=== PATIENT | female | born 1930 | race Caucasian/White ===

== ENCOUNTER 2016-07-26 08:26 | Day surgery (SDCO) | payer MEDICARE, OTHER ==
[2016-07-26 08:18] LABS: BASOPHIL 0.3 % (0-2); EOSINOPHIL 1.8 % (0-7); HCT 40.2 % (37.0-47.0); MCHC 34.8 g/dL (32.0-36.0); MCV 89.1 fL (78.0-100.0); MPV 10.8 fL (6.0-9.5); NEUTROPHIL 68.9 % (41-80); PLT 145 K/uL (150-400); RBC 4.51 M/uL (4.20-5.40); RDW 12.4 % (11.5-14.0); WBC 6.6 K/uL (4.0-10.5)
[2016-07-26 08:23] LABS: INR 1.7 (0.9-1.2); PROTHROMBIN TIME 19.4 SECONDS (11.7-14.0); PTT 38.1 SECONDS (23.2-31.4)
[2016-07-26 08:26] LABS: CKMB 3.02 ng/mL (0.97-4.94); MYOGLOBIN 51 ng/mL (26-65); PRO-BNP 5616 pg/mL (0-450); TROPONIN T < 0.010 ng/mL
[2016-07-26 08:27] LABS: ALBUMIN 4.5 g/dL (3.4-4.8); BILIRUBIN - TOTAL 0.5 mg/dL (0.1-1.0); CREATININE 1.1 mg/dL (0.5-1.0); GLOBULIN (CALCULATION) 2.3 g/dL (2.2-4.2); POTASSIUM 3.4 mmol/L (3.5-5.1); TOTAL PROTEIN 6.8 g/dL (6.4-8.3)
[2016-07-27 04:22] LABS: HCT 39.4 % (37.0-47.0); HGB 13.8 g/dl (12.5-16.0); MCH 31.3 pg (25.0-31.0); MCV 89.3 fL (78.0-100.0); MPV 10.9 fL (6.0-9.5); RBC 4.41 M/uL (4.20-5.40); RDW 12.4 % (11.5-14.0); WBC 7.8 K/uL (4.0-10.5)
[2016-07-27 04:45] LABS: INR 1.98 (0.9-1.2); PROTHROMBIN TIME 21.9 SECONDS (11.7-14.0)
[2016-07-27 06:22] LABS: CREATININE 1.5 mg/dL (0.5-1.0); POTASSIUM 3.6 mmol/L (3.5-5.1)
[2016-07-27] MEDS ORDERED: COUMADIN4 MG PO (10:39)
[2016-07-27] MEDS ORDERED: ASPIRIN CHEWABL81 MG PO (10:42)
[2016-07-27] MEDS ORDERED: ZESTRIL5 MG PO (10:42)
[2016-07-27] MEDS ORDERED: LOPRESSOR100 MG PO (10:43)
[2016-07-27] MEDS ORDERED: ZOCOR20 MG PO (10:43)
[2016-07-27] MEDS ORDERED: POTASSIUM CHLO10 MEQ PO (10:44)
[2016-07-27] MEDS ORDERED: BUMETANIDE2 MG PO (10:44)
== END 2016-07-27 14:35 | disposition home or self-care (01) ==
LOC: FER 08:26 → FTCU 11:55
PROVIDERS: Internal Medicine; ADMIT Internal Medicine
DX: I48.0 Paroxysmal atrial fibrillation (principal); I25.10 Atherosclerotic heart disease of native coronary artery without angina pectoris; I11.0 Hypertensive heart disease with heart failure; I50.30 Unspecified diastolic (congestive) heart failure; E78.5 Hyperlipidemia, unspecified; Z90.49 Acquired absence of other specified parts of digestive tract; Z95.2 Presence of prosthetic heart valve; Z90.710 Acquired absence of both cervix and uterus; Z82.49 Family history of ischemic heart disease and other diseases of the circulatory system; Z79.01 Long term (current) use of anticoagulants; Z79.899 Other long term (current) drug therapy
CPT/HCPCS: 36415; 71010; 80048; 80053; 82550; 82553; 83735; 83874; 83880; 84443; 84484; 85025; 85610; 85730; 93005; C9113; G0378

== ENCOUNTER 2021-01-22 10:32 | Emergency (ER) | payer MEDICARE, OTHER ==
[~2021-01-22 10:32] MED LIST: ASPIRIN CHEWABL81 MG PO; BUMETANIDE2 MG PO; CARAFATE1 GM PO; CARTIA XT120 MG PO; COUMADIN3 MG PO; COUMADIN4 MG PO; LOPRESSOR100 MG PO; PANTOPRAZOLE SO40 MG PO; POTASSIUM CHLO10 MEQ PO; ZESTRIL5 MG PO; ZOCOR20 MG PO
[2021-01-22 11:46] LABS: BASOPHIL 0.4 % (0-2); HCT 39.6 % (37.0-47.0); HGB 13.2 g/dl (12.5-16.0); MCH 30.5 pg (25.0-31.0); MCHC 33.3 g/dL (32.0-36.0); MCV 91.5 fL (78.0-100.0); MONOCYTE 5.1 % (0-12); MPV 10.6 fL (6.0-9.5); NEUTROPHIL 82.1 % (41-80); NRBC 0; PLT 152 K/uL (150-400); RBC 4.33 M/uL (4.20-5.40); RDW 12.3 % (11.5-14.0); WBC 7.3 K/uL (4.0-10.5)
[2021-01-22 12:04] LABS: INR 2.24 (0.9-1.2); PROTHROMBIN TIME 23.9 SECONDS (11.8-13.4)
== END 2021-01-22 12:39 | disposition home or self-care (01) ==
LOC: FER 10:32
PROVIDERS: Emergency Medicine
DX: S50.11XA Contusion of right forearm, initial encounter (principal); I10 Essential (primary) hypertension; X58.XXXA Exposure to other specified factors, initial encounter
CPT/HCPCS: 36415; 85025; 85610; 99283